=== PATIENT | male | born 1950 | race Caucasian/White ===

== ENCOUNTER 2020-11-08 09:23 | Outpatient (CLI) | payer MEDICARE | END 2020-11-08 23:59 | disposition home or self-care (01) | LOC: PETCFH 09:23 | PROVIDERS: ATTEND Internal Medicine Hematology & Oncology | DX: C82.01 Follicular lymphoma grade I, lymph nodes of head, face, and neck (principal); H05.89 Other disorders of orbit | CPT/HCPCS: 78815; A9552 ==